=== PATIENT | female | born 1955 | race Caucasian/White ===

== ENCOUNTER 2017-08-24 14:33 | Emergency (ER) | payer OTHER ==
[2017-08-24 15:32] VITALS: BP 153/83
== END 2017-08-24 17:06 | disposition home or self-care (01) ==
LOC: ED 14:33
DX: B02.9 Zoster without complications (principal); E11.9 Type 2 diabetes mellitus without complications; I10 Essential (primary) hypertension; E78.00 Pure hypercholesterolemia, unspecified; Z87.891 Personal history of nicotine dependence